=== PATIENT | male | born 1980 | race Caucasian/White ===

== ENCOUNTER 2021-10-05 00:55 | Emergency (ER) | payer BC ==
--- OUTSIDE RECORDS SUMMARY | 2021-10-05 00:57 | XMS REPORT | Continuity of Care Document ---
:1980 Author Organization [facility] t Address [address] [place] [address] [address] [place] [address] Care Team Providers Name Role Phone WATERS_S Attending Clinician Unavailable WATERS_S Admitting Clinician Unavailable Payers Payer Name Policy Type Policy Number Effective Date Expiration Date Ese ken[place] [id number] 2020 00:00:00 [place] Problems This patient has no known problems. Allergies, Adverse Reactions, Alerts This patient has no known allergies or adverse reactions. Medications This patient has no known medications. Procedures This patient has no known procedures. Encounters Start End Encounter Admission Attending Care Care Encounter Source Date/Time Date/Time Type Type Clinicians Facility Department ID 2020-11-18 2020-11-18 Outpatient WATERS_S [facility] [id number]- 2020 [place] 11:17:00 11:17:00 [facility] Results This patient has no known results.
[2021-10-05] MEDS ORDERED: IBUPROFEN 400 MG TAB ONE (01:23)
[2021-10-05] MEDS ORDERED: ACETAMINOPHEN 500 MG TAB ONE (01:23)
--- NOTE | 2021-10-05 01:54 | EDPHYS ---
Physician Documentation [facility] Name: Simone Rodrigues Age: 40 yrs Sex: Male : 1980 Arrival Date: 10/05/2021 Time: 00:59 Bed 5 Private MD: ED Physician Clif Montalvo HPI: 10/05 01:14 This 40 yrs old Male presents to ER via Unassigned with complaints of Ankle Injury. cp 01:14 The patient presents with an injury, pain, that is acute. The complaints affect the cp left ankle. Onset: The symptoms/episode began/occurred just prior to arrival. Context: resulted from a mis-step by the patient, The mechanism of injury involved inversion of the affected ankle. The patient is unable to bear weight. Associated signs and symptoms: Pertinent positives: swelling, Pertinent negatives: calf tenderness, numbness. Historical: - Allergies: 01:30 PENICILLINS; vc1 - Home Meds: 01:30 Trulicity [Active]; vc1 - PMHx: 01:30 Diabetes mellitus; vc1 - Immunization history:: Adult Immunizations up to date, Client reports receiving the 2nd dose of the Covid vaccine, Flu vaccine is not up to date. It has been more than one year since last vaccine. - Social history:: Smoking status: Patient reports the use of cigarette tobacco products, denies chronic smoking, but will smoke occasionally. ROS: 01:15 Constitutional: Negative for body aches, chills, fever. cp 01:15 Respiratory: Negative for cough, shortness of breath. 01:15 Abdomen/GI: Negative for abdominal pain, nausea, vomiting, and diarrhea. 01:15 MS/extremity: Positive for decreased range of motion, pain, swelling, tenderness, of the lateral malleolus of left ankle, Negative for deformity, paresthesias. 01:15 Neuro: Negative for numbness, tingling, weakness. 01:15 All other systems are negative. Exam: 01:17 Head/Face: Normocephalic, atraumatic. cp 01:17 Constitutional: The patient appears in no acute distress, alert, awake, well developed, well nourished, uncomfortable. 01:17 Musculoskeletal/extremity: Extremities: grossly normal except: noted in the left lateral malleolus: pain, swelling, tenderness, ROM: limited active range of motion due to pain, in the left ankle, Pulses: noted to be 2+ in the left dorsalis pedis artery, the left ankle and left foot Sensation intact. Achilles tendon palpated and intact, no pain to palpation at head of left fibula and/or base of left fifth metatarsal. Vital Signs: 01:26 BP 155 / 95; Pulse 102; Resp 20; Pulse Ox 99% on R/A; Weight 117.48 kg; Height 5 ft. 6 vc1 in. (167.64 cm); Pain 8/10; 02:35 BP 151 / 88; Pulse 86; Resp 17; Pulse Ox 99% on R/A; ll3 01:26 Body Mass Index 41.80 (117.48 kg, 167.64 cm) vc1 MDM: 01:14 Patient medically screened. cp 01:30 Differential diagnosis: fracture, sprain, dislocation, foot fracture, Achilles tendon cp rupture. 01:53 Data reviewed: vital signs, nurses notes, radiologic studies, plain films. cp 01:53 Test interpretation: by ED physician or midlevel provider: plain radiologic studies, cp xrays of left ankle negative for acute fracture. Counseling: I had a detailed discussion with the patient and/or guardian regarding: the historical points, exam findings, and any diagnostic results supporting the discharge/admit diagnosis, radiology results, to return to the emergency department if symptoms worsen or persist or if there are any questions or concerns that arise at home. Response to treatment: the patient's symptoms have markedly improved after treatment, and as a result, I will discharge patient. 10/05 01:14 Order name: XRAY Ankle LEFT 3 view cp 10/05 01:14 Order name: Ice pack; Complete Time: 01:15 cp 10/05 01:50 Order name: Ankle Splint: Aircast; Complete Time: 02:35 cp 10/05 01:50 Order name: Crutches; Complete Time: 02:35 cp Administered Medications: 01:23 Drug: Tylenol 1000 mg Route: PO; ll3 02:36 Follow up: Response: No adverse reaction; Marked relief of symptoms ll3 01:24 Drug: Ibuprofen 800 mg Route: PO; ll3 02:37 Follow up: Response: No adverse reaction; Marked relief of symptoms ll3 Disposition: 02:00 Chart complete. cp 04:15 Co-signature as Attending Physician, Clif Montalvo MD I agree with the assessment and rn plan of care. Attestation: The patient's history, exam findings, diagnostics, and a summary of any interventions or procedures was reviewed in detail with Prem Bae MD. Disposition Summary: 10/05/21 01:53 Discharge Ordered Location: Home cp Problem: new cp Symptoms: have improved cp Condition: Stable cp Diagnosis - Sprain of ankle - left cp Followup: cp - With: Prem Bae MD - When: 1 week - Reason: pain and swelling continues Discharge Instructions: - Discharge Summary Sheet cp - Ankle Sprain cp - RICE Therapy for Routine Care of Injuries cp Forms: - Medication Reconciliation Form cp - Thank You Letter cp - Antibiotic Education cp - Prescription Opioid Use cp - Work release form mw2 Prescriptions: - Naprosyn 500 mg Oral Tablet - take 1 tablet by ORAL route 2 times per day take with food; 20 tablet; Refills: cp 0, Product Selection Permitted Signatures: Dispatcher [employer] EDMS Clif Montalvo MD MD rn Casey Sepulveda PA PA cp Tati Villalba RN RN ll3 Brittany Barrios RN RN vc1
--- NOTE | 2021-10-05 01:54 | ER ---
Nurse's Notes [facility] Name: Simone Rodrigues Age: 40 yrs Sex: Male : 1980 Arrival Date: 10/05/2021 Time: 00:59 Bed 5 Private MD: Diagnosis: Sprain of ankle-left Presentation: 10/05 01:26 Chief complaint: Patient states: I was carrying boxes while walking and my ankle gave vc1 out on me. Coronavirus screen: Vaccine status: Patient reports receiving the 2nd dose of the covid vaccine. Pfizer At this time, the client does not indicate any symptoms associated with coronavirus-19. Ebola Screen: No symptoms or risks identified at this time. Initial Sepsis Screen: Does the patient meet any 2 criteria? HR > 90 bpm. No. Patient's initial sepsis screen is negative. Does the patient have a suspected source of infection? No. Patient's initial sepsis screen is negative. Risk Assessment: Do you want to hurt yourself or someone else? Patient reports no desire to harm self or others. Onset of symptoms was October 05, 2021. 01:26 Method Of Arrival: Wheelchair vc1 01:26 Acuity: TATO 4 vc1 Triage Assessment: 01:30 General: Appears in no apparent distress. Behavior is calm, cooperative, appropriate vc1 for age. Pain: Complains of pain in left lateral ankle, left medial ankle and anterior aspect of left ankle Pain does not radiate. Pain currently is 8 out of 10 on a pain scale. Neuro: Level of Consciousness is awake, alert, obeys commands, Oriented to person, place, time, situation, Appropriate for age. Musculoskeletal: Swelling present in left lateral ankle. Historical: - Allergies: 01:30 PENICILLINS; vc1 - Home Meds: 01:30 Trulicity [Active]; vc1 - PMHx: 01:30 Diabetes mellitus; vc1 - Immunization history:: Adult Immunizations up to date, Client reports receiving the 2nd dose of the Covid vaccine, Flu vaccine is not up to date. It has been more than one year since last vaccine. - Social history:: Smoking status: Patient reports the use of cigarette tobacco products, denies chronic smoking, but will smoke occasionally. Screenin:32 Abuse screen: Denies threats or abuse. Nutritional screening: No deficits noted. vc1 Tuberculosis screening: No symptoms or risk factors identified. 02:02 Fall Risk None identified. Total Calix Fall Scale indicates No Risk (0-24 pts). ll3 Assessment: 01:33 General: Appears uncomfortable, Behavior is calm, cooperative. Pain: Complains of pain ll3 in left lateral ankle. Neuro: Level of Consciousness is awake, alert, obeys commands, Oriented to person, place, time, situation. Cardiovascular: Patient's skin is warm and dry. Respiratory: Respiratory effort is even, unlabored, Respiratory pattern is regular, symmetrical. Derm: Skin is pink, warm \T\ dry. Musculoskeletal: Circulation, motion, and sensation intact. Swelling present in left medial ankle Parent/caregiver report the patient having States fell and twisted ankle. 02:35 Reassessment: Patient and/or family updated on plan of care and expected duration. Pain ll3 level reassessed. Patient is alert, oriented x 3, equal unlabored respirations, skin warm/dry/pink. Patient states symptoms have improved. Vital Signs: 01:26 BP 155 / 95; Pulse 102; Resp 20; Pulse Ox 99% on R/A; Weight 117.48 kg; Height 5 ft. 6 vc1 in. (167.64 cm); Pain 8/10; 02:35 BP 151 / 88; Pulse 86; Resp 17; Pulse Ox 99% on R/A; ll3 01:26 Body Mass Index 41.80 (117.48 kg, 167.64 cm) vc1 ED Course: 00:59 Patient arrived in ED. ja2 01:05 Casey Sepulveda PA is PHCP. cp 01:05 Clif Montalvo MD is Attending Physician. cp 01:28 Triage completed. vc1 01:33 Arm band placed on right wrist. Patient placed in an exam room, on a stretcher, on vc1 pulse oximetry. Ice pack applied. 01:33 Patient has correct armband on for positive identification. Bed in low position. Call vc1 light in reach. Pulse ox on. NIBP on. Ice pack to injury. 01:40 XRAY Ankle LEFT 3 view In Process Unspecified. EDMS 01:52 Prem Bae MD is Referral Physician. cp 02:02 No provider procedures requiring assistance completed. Patient did not have IV access ll3 during this emergency room visit. Administered Medications: 01:23 Drug: Tylenol 1000 mg Route: PO; ll3 02:36 Follow up: Response: No adverse reaction; Marked relief of symptoms ll3 01:24 Drug: Ibuprofen 800 mg Route: PO; ll3 02:37 Follow up: Response: No adverse reaction; Marked relief of symptoms 3 Outcome: 01:53 Discharge ordered by . cp 02:35 Discharged to home with crutches, with family. ll3 02:35 Condition: stable 02:35 Discharge instructions given to patient, family, Instructed on discharge instructions, follow up and referral plans. medication usage, Demonstrated understanding of instructions, follow-up care, medications, Prescriptions given X 1. 02:37 Patient left the ED. ll3 Signatures: Dispatcher [employer] EDMS Casey Sepulveda PA PA cp Alexander, Jessica ja2 Loubet, Lynsea RN RN ll3 Brittany Barrios RN RN vc1
[2021-10-05 02:42] VITALS: O2SAT 99
[2021-10-05 02:44] VITALS: BP 151/88
--- NOTE | 2021-10-05 07:38 | RAD REPORT ---
EXAM DESCRIPTION: RAD - Ankle Left 3 View - 10/05/2021 1:40 am CLINICAL HISTORY: PAIN COMPARISON: No comparisons FINDINGS/IMPRESSION: No acute fracture. No malalignment. Accessory ossicle versus remote avulsion fr acture from the distal fibula. Calcaneal spur.
== END 2021-10-05 02:37 | disposition home or self-care (01) ==
LOC: ER 00:55
DX: S93.402A Sprain of unspecified ligament of left ankle, initial encounter (principal); E11.9 Type 2 diabetes mellitus without complications; F17.210 Nicotine dependence, cigarettes, uncomplicated; Z88.0 Allergy status to penicillin
CPT/HCPCS: 99284